=== PATIENT | female | born 1990 | race Two or more races ===

== ENCOUNTER 2017-04-04 17:31 | Emergency (ER) | payer SELFPAY ==
--- NOTE | 2017-04-04 19:26 | RADIOLOGY REPORT (SQ) ---
EXAM DESCRIPTION: CT HEAD WITHOUT COMPLETED DATE/TIME: 04/04/2017 7:07 pm REASON FOR STUDY: NEW [facility] COMPARISON: None. TECHNIQUE: Axial images acquired through the brain without intravenous contrast. Images reviewed wi th bone, brain and subdural windows. Images stored on PACS. All CT scanners at this facility use dose modulation, iterative reconstruction, and/or weight based d osing when appropriate to reduce radiation dose to as low as reasonably achievable (ALARA). [facility]: Dose Right [facility]: CareDose [facility]: Dose Right [facility]: Teradose 4D [facility]: Oncimmune RADIATION DOSE: Up-to-date CT equipment and radiation dose reduction techniques were employed. CTDIv ol: 64.6 mGy. DLP: 1034 mGy-cm. mGy. LIMITATIONS: None. FINDINGS: VENTRICLES: Normal size and contour. CEREBRUM: No masses. No hemorrhage. No midline shift. No evidence for acute infarction. Normal gra y/white matter differentiation. No areas of low density in the white matter. CEREBELLUM: No masses. No hemorrhage. No alteration of density. No evidence for acute infarction. EXTRAAXIAL SPACES: No fluid collections. No masses. ORBITS AND GLOBE: No intra- or extraconal masses. Normal contour of globe without masses. CALVARIUM: No fracture. PARANASAL SINUSES: No fluid or mucosal thickening. SOFT TISSUES: No mass or hematoma. OTHER: No other significant finding. IMPRESSION: NORMAL BRAIN CT WITHOUT CONTRAST. EVIDENCE OF ACUTE STROKE: NO. COMMENT: Quality ID # [id number]: Final reports with documentation of one or more dose reduction techniques (e.g., Automated exposure control, adjustment of the mA and/or kV according to patient size, use of iterative reconstruction technique) TECHNICAL DOCUMENTATION: JOB ID: [id number] [employer]- All Rights Reserved
--- NOTE | 2017-04-04 20:48 | ER Document Report ---
ED Headache - General Chief Complaint: Headache Stated Complaint: HEADACHE/PRESSURE Time Seen by Provider: 04/04/17 18:44 Information source: Patient Notes: Patient is a 26-year-old female comes to emergency room complaining of a headache she has had on and off again for the past week. She states that she start with Tylenol at work and then it stopped working and took ibuprofen which started to help it and then it quit helping. Patient states the headache is frontal mostly right sided radiating back to her neck. She denies any fevers no no vomiting but does display some photophobia and nausea. 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 She denies smoking. Patient also denies any history of family having aneurysms of the brain or have a history of headaches. TRAVEL OUTSIDE OF THE [place] IN LAST 30 DAYS: No - HPI Patient complains to provider of: Headache, "Migraine" Patient reports: Other - No history in the past Onset: Last week Onset was: Abrupt Timing: Still present Quality of pain: Sharp, Throbbing Severity: Severe Pain Level: 4 Context: Other - Has recent amount of stressors increased. Associated symptoms: Lightheaded, Nausea/vomiting, Neck pain. denies: None, Chills, Confusion, Dizzy, Double/blurred vision, Fainting, Fever, Memory loss, Motion sickness, Motor/sensory loss to arm, Motor/sensory loss to leg, Photophobia, Speech problems, Stiff neck, Sweaty, Tingling/numb sensation, Trouble walking Exacerbated by: Light, Noise, Movement Similar symptoms previously: No Recently seen / treated by doctor: No - Related Data Allergies/Adverse Reactions: No Known Allergies Allergy (Verified 04/04/17 17:37) Past Medical History - General Information source: Patient - Social History Smoking Status: Never Smoker Chew tobacco use (# tins/day): No Frequency of alcohol use: None Drug Abuse: None Family History: Reviewed & Not Pertinent Patient has suicidal ideation: No Patient has homicidal ideation: No - Past Medical History Cardiac Medical History: Denies: Hx Heart Attack, Hx Hypertension Pulmonary Medical History: Denies: Hx Asthma Neurological Medical History: Denies: Hx Cerebrovascular Accident, Hx Seizures Renal/ Medical History: Denies: Hx Peritoneal Dialysis GI Medical History: Denies: Hx Hepatitis, Hx Hiatal Hernia, Hx Ulcer Infectious Medical History: Denies: Hx Hepatitis Past Surgical History: Reports: Hx Tubal Ligation. Denies: Hx Mastectomy, Hx Open Heart Surgery, Hx Pacemaker Review of Systems - Review of Systems Constitutional: No symptoms reported EENT: No symptoms reported Cardiovascular: No symptoms reported Respiratory: No symptoms reported Gastrointestinal: No symptoms reported Genitourinary: No symptoms reported Female Genitourinary: No symptoms reported Musculoskeletal: No symptoms reported Skin: No symptoms reported Hematologic/Lymphatic: No symptoms reported Neurological/Psychological: Headaches Physical Exam - Vital signs Vitals: Temp Pulse Resp BP Pulse Ox 99.2 F 85 18 121/83 99 04/04/17 17:36 04/04/17 17:36 04/04/17 17:36 04/04/17 17:36 04/04/17 17:36 Interpretation: Normal Notes: Walking and patient and doing physical exam she appears somewhat withdrawn. Patient tells me that the pain in her neck is secondary is not coming from the neck. She states that it starts in the head and was back towards the neck. She denies any fevers and there is no meningismal signs. - General General appearance: Alert - HEENT Head: Normocephalic, Atraumatic Eyes: Normal Conjunctiva: Normal Cornea: Normal Extraocular movements intact: Yes Pupils: PERRL Visual acuity- Right eye: 20/25 Visual acuity- Left eye: 20/25 Visual acuity- Both eyes: 20/25 Corrective lenses worn: No Nerve palsy: Yes Visual ty normal: Yes Ears: Normal External canal: Normal Tympanic membrane: Normal Sinus: Normal Nasal: Normal Mouth/Lips: Normal Mucous membranes: Normal Pharynx: Normal Neck: Normal, Other - Examination of the neck shows no acute findings. Patient has full range of motion of the neck without discomfort or pain. - Respiratory Respiratory status: No respiratory distress - Cardiovascular Rhythm: Regular Heart sounds: Normal auscultation Murmur: No - Neurological Neuro grossly intact: Yes Cognition: Normal Orientation: AAOx4 Cowen Coma Scale Eye Opening: Spontaneous Miguel Coma Scale Verbal: Oriented Cowen Coma Scale Motor: Obeys Commands Cowen Coma Scale Total: 15 Speech: Normal - Psychological Associated symptoms: Other - Patient displays a moderately flat affect. Discussion with patient she tells me she has lots of stressors at home. She has 2 girls 9 which is her primary is source of support. Patient admittingly states that she knows she is under lots of stress and that this could be part of the reason for the headaches. Course - Re-evaluation Re-evalutation: 04/04/17 20:52 Reevaluation patient to still have a headache minor. We will treat her with some Fioricet outpatient and we have had a long discussion with patient about finding contact with a primary care provider to have a discussion with them about depression and anxiety and using medications to treat it until the stressors are gone. 04/04/17 20:52 Patient was once again asked if she was homicidal or suicidal and she replied no. Patient smiles when she talks about her children side out. Seriously she has any intentions of harming herself or anyone else. - Vital Signs Vital signs: Temp Pulse Resp BP Pulse Ox 99.2 F 85 18 121/83 99 04/04/17 17:36 04/04/17 17:36 04/04/17 17:36 04/04/17 17:36 04/04/17 17:36 Discharge - Discharge Clinical Impression: Tension headache, Migraine headache Condition: Stable Disposition: HOME, SELF-CARE Instructions: Tension Headache ([facility]), Migraine Headache ([facility]) Additional Instructions: Home and rest. Medication as prescribed. As we discussed in length he should follow-up with the primary care provider or establish with one that discussed these problems or having. He should also have someone follow you and be able to refer you to the next step in the evaluation of these headaches. I have given you medication that can make you sleepy she will be very careful with it. Should return to ER for any concerns or problems. Prescriptions: Butalb/Acetaminophen/Caffeine [Fioricet (50-325-40 mg) Tablet] 1 tab PO Q4HP PRN #20 tab PRN Reason: Forms: Elevated Blood Pressure Referrals: ANGELES TANNER, [facility] [Primary Care Provider] - Follow up as needed
[2017-04-04 21:17] VITALS: BP 113/82
== END 2017-04-04 21:14 | disposition home or self-care (01) ==
LOC: ER 17:31
DX: G43.909 Migraine, unspecified, not intractable, without status migrainosus (principal); R11.2 Nausea with vomiting, unspecified; M54.2 Cervicalgia; Z98.51 Tubal ligation status
CPT/HCPCS: 70450; 99283